=== PATIENT | female | born 1955 | race American Indian/Alaskan Native ===

== ENCOUNTER 2020-09-19 07:42 | Emergency (ER) | payer OTHER ==
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
--- NOTE | 2020-09-19 09:30 | XRay Report ---
Lumbar spine 2 views INDICATION: Pain FINDINGS: Discogenic degenerative changes seen throughout the lumbar spine. Endplate changes anterior posterior disc osteophyte and facet arthropathy throughout. Calcified fibroid is seen within the pel vis. PA chest and RIBS INDICATION: Pain FINDINGS: Lungs clear heart size appears normal. No pneumothorax. No displaced rib fracture is defini tely seen. Signer Name: Faustino Kelley MD Signed: 09/19/2020 9:26 AM Workstation Name: [id number]
[2020-09-19] MEDS ORDERED: IBUPROFEN 800 MG TAB PO ONE (09:31)
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
== END 2020-09-19 10:07 | disposition home or self-care (01) ==
LOC: ED 07:42
DX: M54.5 Low back pain (principal); I10 Essential (primary) hypertension; Z79.1 Long term (current) use of non-steroidal anti-inflammatories (NSAID); Z79.899 Other long term (current) drug therapy; Z88.2 Allergy status to sulfonamides; V49.49XA Driver injured in collision with other motor vehicles in traffic accident, initial encounter; W22.10XA Striking against or struck by unspecified automobile airbag, initial encounter; Y93.89 Activity, other specified; Y92.410 Unspecified street and highway as the place of occurrence of the external cause; Y99.8 Other external cause status
CPT/HCPCS: 72100